=== PATIENT | male | born 1980 | race Native Hawaiian/Other Pacific Islander ===

== ENCOUNTER 2018-04-02 16:24 | Observation (INO) | payer BC ==
[2018-04-02 17:17] LABS: Basophils % (A) 0 %; Eosinophils # (A) 0.1 k/uL (0-0.7); Eosinophils % (A) 1 %; HCT 50.9 % (39.0-53.0); HGB 17.3 gm/dL (13.0-17.5); Lymphocytes % (A) 21 %; MCH 29.5 pg (25.0-35.0); MCHC 33.9 g/dL (31.0-37.0); Mean Platelet Volume 8.5; Monocytes # (A) 0.5 k/uL (0-1.0); Monocytes % (A) 6 %; Neutrophils # (A) 6.7 k/uL (1.3-7.7); Neutrophils % (A) 70 %; Platelet Count 201 k/uL (150-450); RBC 5.84 m/uL (4.30-5.90); RDW 12.3 % (11.5-15.5); WBC 9.5 k/uL (3.8-10.6)
[2018-04-02 17:27] LABS: ALT 42 U/L (21-72); AST 36 U/L (17-59); Albumin 4.6 g/dL (3.5-5.0); Alkaline Phosphatase 77 U/L (38-126); Anion Gap 14 mmol/L; Blood Urea Nitrogen 10 mg/dL (9-20); Carbon Dioxide 23 mmol/L (22-30); Chloride 102 mmol/L (98-107); Glucose 104 mg/dL (74-99); Potassium 3.9 mmol/L (3.5-5.1); Sodium 139 mmol/L (137-145); Total Bilirubin 0.9 mg/dL (0.2-1.3); Total Protein 7.7 g/dL (6.3-8.2)
[2018-04-02 17:34] LABS: INR 1.1 (<1.2); Partial Thromboplastin Time 24.4 sec (22.0-30.0); Prothrombin Time 10.9 sec (9.0-12.0)
[2018-04-02 17:46] LABS: Creatine Kinase 170 U/L (55-170)
[2018-04-02 17:58] LABS: Creatine Kinase MB 1.5 ng/mL (0.0-2.4); Troponin I <0.012 ng/mL (0.000-0.034)
--- NOTE | 2018-04-02 18:29 | ED ---
General Adult HPI - General Chief complaint: Chest Pain Stated complaint: CHEST PAIN HYPERTENSION Source: patient Mode of arrival: wheelchair Limitations: no limitations - History of Present Illness Initial comments: Dictation was produced using [employer] dictation software. please excuse any grammatical, word or spelling errors. Chief Complaint: 37-year-old male presents with chest pain and numbness to the left upper extremity. History of Present Illness: Patient states he had these symptoms ongoing for approximately 2-3 days. He states his symptoms got worse today. Patient states he has a sharp chest pressure that radiates to the back. Reports that the pain also radiates down the left upper extremity. Patient was at work when this occurred. Patient denies this being the worse. He is a full-thickness light. He just had his blood pressure medications changed approximately one week ago. The ROS documented in this emergency department record has been reviewed and confirmed by me. Those systems with pertinent positive or negative responses have been documented in the HPI. All other systems are other negative and/or noncontributory. - Related Data Home Medications Medication Instructions Recorded Confirmed Losartan-Hctz 50-12.5 mg [Hyzaar 1 tab PO DAILY 04/02/18 04/02/18 50-12.5] Allergies Allergy/AdvReac Type Severity Reaction Status Date / Time No Known Allergies Allergy Verified 04/02/18 16:36 Review of Systems ROS Statement: Those systems with pertinent positive or pertinent negative responses have been documented in the HPI. ROS Other: All systems not noted in ROS Statement are negative. Past Medical History Past Medical History: Hypertension History of Any Multi-Drug Resistant Organisms: None Reported Additional Past Surgical History / Comment(s): vasectomy Past Psychological History: No Psychological Hx Reported Smoking Status: Current every day smoker Past Alcohol Use History: Occasional Past Drug Use History: None Reported General Exam - General Exam Comments Initial Comments: PHYSICAL EXAM: General Impression: Alert and oriented x3, not in acute distress HEENT: Normocephalic atraumatic, extra-ocular movements intact, pupils equal and reactive to light bilaterally, mucous membranes moist. Cardiovascular: Heart regular rate and rhythm, S1&S2 audible, no murmurs, rubs or gallops Chest: Lungs clear to auscultation bilaterally, no rhonchi, no wheeze, no rales Abdomen: Bowel sounds present, abdomen soft, non-tender, non-distended, no organomegaly Musculoskeletal: Pulses present and equal in all extremities, no peripheral edema Motor: Power 5/5 bilaterally, no focal deficits noted Neurological: CN II-XII grossly intact, no focal motor or sensory deficits noted Skin: Intact with no visualized rashes Psych: Normal affect and mood Limitations: no limitations Course Vital Signs 04/02/18 04/02/18 04/02/18 16:36 18:00 19:42 Temperature 98.2 F Pulse Rate 89 79 Respiratory 18 18 Rate Blood Pressure 148/100 189/97 149/65 O2 Sat by Pulse 98 98 Oximetry Medical Decision Making - Medical Decision Making ED course: 37-year-old male with chief complaint of chest pain. Vital signs upon arrival are within acceptable limits. Physical examination is unremarkable. Patient has equal pulses of both upper extremities and lower extremities. Patient does not appear to be in any acute distress. Laboratory evaluation obtained. CBC is unremarkable. Coag panel is unremarkable. D-dimer is 0.17. Metabolic panel is unremarkable. Cardiac enzymes are negative. Chest x-ray shows no acute processes. EKG as evidenced obtained showing no signs to suggest ischemia or infarction. More history was obtained from patient. Sounds like patient has strong family history of maternal paternal side of acute coronary syndrome. Maternal side had multiple individuals with coronary artery disease especially at a young age. They have a relative who was in his 30s that had sudden cardiac . There is also multiple individuals on maternal and paternal side who had severe coronary artery disease requiring intervention. Patient still complaining of some chest pressure. Patient's clinical presentation consistent with atypical chest pain with typical features. Given strong family history and suspicious HPI will have patient admitted to observation for suture troponins. Patient given an aspirin. EKG interpretation: Ventricular rate 71, normal sinus rhythm, NH interval 136, QS 90, QTc 412. No NH prolongation, no QTC prolongation, no ST or T-wave changes noted. Overall, this EKG is unremarkable - Lab Data Result diagrams: 04/02/18 17:02 04/02/18 17:02 Lab Results 04/02/18 04/02/18 04/02/18 Range/Units 17:02 17: 17:02 WBC 9.5 (3.8-10.6) k/uL RBC 5.84 (4.30-5.90) m/uL Hgb 17.3 (13.0-17.5) gm/dL Hct 50.9 (39.0-53.0) % MCV 87.0 (80.0-100.0) fL MCH 29.5 (25.0-35.0) pg MCHC 33.9 (31.0-37.0) g/dL RDW 12.3 (11.5-15.5) % Plt Count 201 (150-450) k/uL Neutrophils % 70 % Lymphocytes % 21 % Monocytes % 6 % Eosinophils % 1 % Basophils % 0 % Neutrophils # 6.7 (1.3-7.7) k/uL Lymphocytes # 2.0 (1.0-4.8) k/uL Monocytes # 0.5 (0-1.0) k/uL Eosinophils # 0.1 (0-0.7) k/uL Basophils # 0.0 (0-0.2) k/uL PT (9.0-12.0) sec INR (<1.2) APTT (22.0-30.0) sec D-Dimer (<0.60) mg/L FEU Sodium 139 (137-145) mmol/L Potassium 3.9 (3.5-5.1) mmol/L Chloride 102 (98-107) mmol/L Carbon Dioxide 23 (22-30) mmol/L Anion Gap 14 mmol/L BUN 10 (9-20) mg/dL Creatinine 0.67 (0.66-1.25) mg/dL Est GFR (CKD-EPI)AfAm >90 (>60 ml/min/1.73 sqM) Est GFR (CKD-EPI)NonAf >90 (>60 ml/min/1.73 sqM) Glucose 104 H (74-99) mg/dL Calcium 10.0 (8.4-10.2) mg/dL Total Bilirubin 0.9 (0.2-1.3) mg/dL AST 36 (17-59) U/L ALT 42 (21-72) U/L Alkaline Phosphatase 77 (38-126) U/L Total Creatine Kinase 170 (55-170) U/L CK-MB (CK-2) 1.5 (0.0-2.4) ng/mL CK-MB (CK-2) Rel Index 0.9 Troponin I <0.012 (0.000-0.034) ng/mL Total Protein 7.7 (6.3-8.2) g/dL Albumin 4.6 (3.5-5.0) g/dL 04/02/18 04/02/18 Range/Units 17:02 17:02 WBC (3.8-10.6) k/uL RBC (4.30-5.90) m/uL Hgb (13.0-17.5) gm/dL Hct (39.0-53.0) % MCV (80.0-100.0) fL MCH (25.0-35.0) pg MCHC (31.0-37.0) g/dL RDW (11.5-15.5) % Plt Count (150-450) k/uL Neutrophils % % Lymphocytes % % Monocytes % % Eosinophils % % Basophils % % Neutrophils # (1.3-7.7) k/uL Lymphocytes # (1.0-4.8) k/uL Monocytes # (0-1.0) k/uL Eosinophils # (0-0.7) k/uL Basophils # (0-0.2) k/uL PT 10.9 (9.0-12.0) sec INR 1.1 (<1.2) APTT 24.4 (22.0-30.0) sec D-Dimer <0.17 (<0.60) mg/L FEU Sodium (137-145) mmol/L Potassium (3.5-5.1) mmol/L Chloride (98-107) mmol/L Carbon Dioxide (22-30) mmol/L Anion Gap mmol/L BUN (9-20) mg/dL Creatinine (0.66-1.25) mg/dL Est GFR (CKD-EPI)AfAm (>60 ml/min/1.73 sqM) Est GFR (CKD-EPI)NonAf (>60 ml/min/1.73 sqM) Glucose (74-99) mg/dL Calcium (8.4-10.2) mg/dL Total Bilirubin (0.2-1.3) mg/dL AST (17-59) U/L ALT (21-72) U/L Alkaline Phosphatase (38-126) U/L Total Creatine Kinase (55-170) U/L CK-MB (CK-2) (0.0-2.4) ng/mL CK-MB (CK-2) Rel Index Troponin I (0.000-0.034) ng/mL Total Protein (6.3-8.2) g/dL Albumin (3.5-5.0) g/dL Disposition Clinical Impression: Chest pain Disposition: ADMITTED IP TO THIS HOSP Referrals: Tj Lakhani DO [Primary Care Provider] - 1-2 days Decision Time: 20:47
--- NOTE | 2018-04-02 19:07 | XR ---
EXAMINATION: XR chest 2V DATE AND TIME: 04/02/2018 6:41 PM CLINICAL INDICATION: Pain TECHNIQUE: PA and lateral COMPARISON: None. FINDINGS: The lungs are clear. The pleural spaces are negative. The cardiac silhouette is not enlarged. The remainder of the mediastinal silhouette is unremarkable. The skeletal structures and soft tissues are negative for acute findings. IMPRESSION: NO ACUTE PROCESS.
[2018-04-02] MEDS ORDERED: NITROGLYCERIN SL TABS 0.4 MG TAB SUBLINGUAL PRN (20:45)
[2018-04-02] MEDS ORDERED: ASPIRIN 81 MG PO STA (20:45)
[2018-04-02 21:55] VITALS: BMI 29.3
[2018-04-02 23:51] LABS: Creatine Kinase 136 U/L (55-170)
[2018-04-03 00:04] LABS: Creatine Kinase MB 1.3 ng/mL (0.0-2.4); Troponin I <0.012 ng/mL (0.000-0.034)
[2018-04-03 01:39] VITALS: RESP 16
[2018-04-03 05:45] LABS: Cholesterol 199 mg/dL (<200); HDL Cholesterol 53 mg/dL (40-60); LDL Cholesterol,Calculated 126 mg/dL (0-99); Triglycerides 98 mg/dL (<150)
[2018-04-03 05:53] LABS: Creatine Kinase 123 U/L (55-170)
[2018-04-03 06:07] LABS: Creatine Kinase MB 1.4 ng/mL (0.0-2.4); Troponin I <0.012 ng/mL (0.000-0.034)
[2018-04-03 07:39] VITALS: TEMP 98.2
[2018-04-03] MEDS ORDERED: IBUPROFEN 600 MG TAB PO STA (08:20)
[2018-04-03] MEDS ORDERED: LOSARTAN-HCTZ 50-12.5 MG 1 EACH TAB PO SCH (09:00)
[2018-04-03] MEDS ORDERED: ASPIRIN 325 MG TAB PO SCH (09:00)
--- NOTE | 2018-04-03 10:22 | P.HPIM ---
History of Present Illness H&P Date: 04/03/18 Chief Complaint: chest pain 37-year-old male who presented to the emergency room with a chief complaint of chest pain. The patient states approximately week ago he had received some bad news in regards to his family and his stress level "skyrocketed". He states over the past week he has been having some vague abdominal pain and nausea although he currently denies both. He states yesterday he was at work around noon when he started having left-sided chest pain. He states the pain was constant and started to radiate into his left shoulder and down his left arm. He also states he had some numbness of his left upper extremity. He denied shortness of breath. He does report dizziness. He did receive aspirin in the emergency room which she states did improve his pain but it did not completely take it away. The patient has a history of hypertension. He is prescribed Hyzaar. Surgical history includes a vasectomy. He is a former cigarette smoker. He does have a family history of cardiac disease which multiple family members requiring cardiac interventions such as stenting. He also reports a family member in his 30s who from sudden cardiac . Chest x-ray: Negative for an acute cardiopulmonary process. EKG: Sinus rhythm. Rate 71. Laboratory data upon admission reveals WBC 9.5. Hemoglobin 17.3. Platelet count 201. INR 1.1. D-dimer less than 0.17. Sodium 139. Potassium 3.9. BUN 10. Creatinine 0.67. Glucose 104. Troponins negative 3. Lipid panel: Triglycerides 98. Cholesterol 199. LDL 126. HDL 53. The patient was admitted to the hospital under the care of Dr. Lakhani to the observation unit. Consultations were placed to cardiology. Review of Systems Those systems with pertinent positive or pertinent negative responses have been documented in the HPI Past Medical History Past Medical History: Hypertension History of Any Multi-Drug Resistant Organisms: None Reported Additional Past Surgical History / Comment(s): vasectomy Past Anesthesia/Blood Transfusion Reactions: No Reported Reaction Past Psychological History: No Psychological Hx Reported Smoking Status: Former smoker Past Alcohol Use History: Occasional Past Drug Use History: None Reported - Past Family History Father Family Medical History: Myocardial Infarction ([place]) Additional Family Medical History / Comment(s): had [place] around age 65 Mother Additional Family Medical History / Comment(s): grandmother on mothers side hx of heart disease and 3 of pts mothers siblings have had [place]'s earliest known age 30's. Medications and Allergies Home Medications Medication Instructions Recorded Confirmed Type Losartan-Hctz 50-12.5 mg [Hyzaar 1 tab PO DAILY 04/02/18 04/02/18 History 50-12.5] Allergies Allergy/AdvReac Type Severity Reaction Status Date / Time No Known Allergies Allergy Verified 04/02/18 16:36 Physical Exam Vitals: Vital Signs Temp Pulse Pulse Resp BP BP Pulse Ox 04/03/18 08:00 62 16 04/03/18 07:38 98.2 F 62 16 152/94 98 04/03/18 04:00 16 04/03/18 03:45 97.6 F 63 16 143/85 97 04/02/18 23:55 97.7 F 88 16 161/97 98 04/02/18 23:39 18 04/02/18 21:50 84 151/89 04/02/18 21:30 18 04/02/18 21:25 97.5 F L 77 18 166/105 96 04/02/18 21:21 88 18 170/102 97 04/02/18 19:42 149/65 04/02/18 18:00 79 18 189/97 98 04/02/18 16:36 98.2 F 89 18 148/100 98 Intake and Output 04/02/18 04/03/18 04/03/18 22:59 06:59 14:59 Other: Voiding Method Toilet Toilet Toilet # Voids 1 2 Weight 85.1 kg GENERAL: This is a 37-year-old male in no apparent distress at the time of examination. HEENT: Head is atraumatic, normocephalic. Sclerae anicteric. Conjunctivae are clear. Neck is supple. RESPIRATORY: Clear to ausculation. No wheezes, rales, or rhonchi. No use of accessory muscles. CARDIOVASCULAR: Regular rate and rhythm. S1 and S2 noted. No JVD noted. No S3 or S4 noted. GASTROINTESTINAL: No distention noted. Abdomen soft and round. Normal active bowel sounds auscultated x 4 quadrants. INTEGUMENTARY: No cyanosis. No jaundice. No rashes noted. No cellulitis noted. EXTREMITIES: 2+ peripheral pulses. No evidence of peripheral edema. NEUROLOGIC: Cranial nerves II-XII intact. PSYCHIATRIC: Awake, alert, and oriented X 3. Appropriate affect. Results CBC & Chem 7: 04/02/18 17:02 04/02/18 17:02 Labs: Abnormal Lab Results - Last 24 Hours (Table) 04/02/18 04/03/18 Range/Units 17:02 05:16 Glucose 104 H (74-99) mg/dL LDL Cholesterol, Calc 126 H (0-99) mg/dL Thrombosis Risk Factor Assmnt - Choose All That Apply Each Factor Represents 1 point: Obesity (BMI >25) Thrombosis Risk Factor Assessment Total Risk Factor Score: 1 Thrombosis Risk Factor Assessment Level: Low Risk Assessment and Plan Plan: ASSESSMENT: Chest pain and dizziness x 1 day, troponin negative x 3, rule out acute coronary syndrome Hypertension History of nicotine dependence, patient is a former cigarette smoker Family history of cardiac disease PLAN: Cardiology on consult. Await further recommendations and input Echocardiogram ordered. Await results Home meds as appropriate Monitor vital signs and address as appropriate Discharge planning: Patient to return home when stable Further recommendations pending patient's course Nurse practitioner note has been reviewed by physician. Signing provider agrees with the documented findings, assessment, and plan of care.
--- NOTE | 2018-04-03 10:45 | P.CRDCN ---
History of Present Illness History of present illness: Mr. Overton is a pleasant 37-year-old male past medical history significant for hypertension. He has followed with Dr. Canada in the past for chest pain and undergone a stress test that was unremarkable in 2016. We have been asked to see him in consultation for chest pain. He states yesterday while working he started having sharp constant pain in the left precordial region that moved around from under his left breast to mid-sternal and epigastric region. Associated with mild shortness of breath and dizziness. At times the discomfort would go into his left shoulder and upper arm. Denies radiation to neck, jaw or back. Denies associated palpitations, nausea, vomiting or diaphoresis. The symptoms started around noon yesterday and persisted until he fell asleep last night at 2300. No specific aggravating or alleviating factors. Still feels mild discomfort when he takes a deep breath and pain is reproducible on palpitation. He also states he has not had a bowel movement in 2 days and is usually quite regular going 3 times per day. EKG reveals sinus mechanism with no acute ST or T-wave abnormalities noted. Chest xray negative for an acute cardiopulmonary process. Laboratory data reviewed, hemoglobin 17.3, platelets 201, d-dimer less than 0.17 , sodium 139, potassium 3.9, cardiac enzymes negative 3, LDL 126, HDL 53, triglycerides 98, total cholesterol 199. Current cardiac medications include Hyzaar 50/12.5 mg daily. Review of Systems At the time of my exam: CONSTITUTIONAL: Denies fever. Denies chills. EYES: Denies blurred vision. Denies vision changes. Denies eye pain. EARS, NOSE, MOUTH & THROAT: Denies headache. Denies sore throat. Denies ear pain. CARDIOVASCULAR: Complains of pleuritic chest pain. Denies shortness of breath. Denies orthopnea. Denies PND. Denies palpitations. RESPIRATORY: Denies cough. GASTROINTESTINAL: Denies abdominal pain. Denies diarrhea. Denies constipation. Denies nausea. Denies vomiting. MUSCULOSKELETAL: Denies myalgias. INTEGUMENTARY: Denies pruitis. Denies rash. NEUROLOGIC: Denies numbness. Denies tingling. Denies weakness. PSYCHIATRIC: Denies anxiety. Denies depression. ENDOCRINE: Denies fatigue. Denies weight change. Denies polydipsia. Denies polyurina. GENITOURINARY: Denies burning, hematuria or urgency with micturation. HEMATOLOGIC: Denies history of anemia. Denies bleeding. Past Medical History Past Medical History: Hypertension History of Any Multi-Drug Resistant Organisms: None Reported Additional Past Surgical History / Comment(s): vasectomy Past Anesthesia/Blood Transfusion Reactions: No Reported Reaction Past Psychological History: No Psychological Hx Reported Smoking Status: Former smoker Past Alcohol Use History: Occasional Past Drug Use History: None Reported - Past Family History Father Family Medical History: Myocardial Infarction ([place]) Additional Family Medical History / Comment(s): had [place] around age 65 Mother Additional Family Medical History / Comment(s): grandmother on mothers side hx of heart disease and 3 of pts mothers siblings have had [place]'s earliest known age 30's. Medications and Allergies Home Medications Medication Instructions Recorded Confirmed Type Losartan-Hctz 50-12.5 mg [Hyzaar 1 tab PO DAILY 04/02/18 04/02/18 History 50-12.5] Allergies Allergy/AdvReac Type Severity Reaction Status Date / Time No Known Allergies Allergy Verified 04/02/18 16:36 Physical Exam Vitals: Vital Signs Temp Pulse Pulse Resp BP BP Pulse Ox 04/03/18 07:38 98.2 F 62 16 152/94 98 04/03/18 04:00 16 04/03/18 03:45 97.6 F 63 16 143/85 97 04/02/18 23:55 97.7 F 88 16 161/97 98 04/02/18 23:39 18 04/02/18 21:50 84 151/89 04/02/18 21:30 18 04/02/18 21:25 97.5 F L 77 18 166/105 96 04/02/18 21:21 88 18 170/102 97 04/02/18 19:42 149/65 04/02/18 18:00 79 18 189/97 98 04/02/18 16:36 98.2 F 89 18 148/100 98 Intake and Output 04/02/18 04/03/18 04/03/18 22:59 06:59 14:59 Other: Voiding Method Toilet Toilet # Voids 1 2 Weight 85.1 kg Blood pressure 152/94 heart rate 62 afebrile maintaining oxygen saturation on room air GENERAL: This is a 37-year-old male in no apparent distress at the time of my examination. HEENT: Head is atraumatic, normocephalic. Pupils are equal, round. Sclerae anicteric. Conjunctivae are clear. Mucous membranes of the mouth are moist. Neck is supple. There is no jugular venous distention. No carotid bruit is heard. LUNGS: Clear to auscultation no wheezes, rales or rhonchi. Mild chest wall tenderness is noted on palpation and with deep breathing. HEART: Regular rate and rhythm without murmurs, rubs or gallops. S1 and S2 heard. ABDOMEN: Soft, nontender. Bowel sounds are heard. No organomegaly noted. EXTREMITIES: No evidence of peripheral edema and no calf tenderness noted. VASCULAR: Radial and dorsalis pedis pulses palpated, no evidence of clubbing. NEUROLOGIC: Patient is awake, alert and oriented x3. Results 04/02/18 17:02 04/02/18 17:02 Cardiac Enzymes 04/02/18 04/02/18 04/02/18 Range/Units 17:02 17:02 23:07 AST 36 (17-59) U/L CK-MB (CK-2) 1.5 1.3 (0.0-2.4) ng/mL Troponin I <0.012 <0.012 (0.000-0.034) ng/mL 04/03/18 Range/Units 05:16 AST (17-59) U/L CK-MB (CK-2) 1.4 (0.0-2.4) ng/mL Troponin I <0.012 (0.000-0.034) ng/mL Coagulation 04/02/18 Range/Units 17:02 PT 10.9 (9.0-12.0) sec APTT 24.4 (22.0-30.0) sec Lipids 04/03/18 Range/Units 05:16 Triglycerides 98 (<150) mg/dL Cholesterol 199 (<200) mg/dL HDL Cholesterol 53 (40-60) mg/dL CBC 04/02/18 Range/Units 17:02 WBC 9.5 (3.8-10.6) k/uL RBC 5.84 (4.30-5.90) m/uL Hgb 17.3 (13.0-17.5) gm/dL Hct 50.9 (39.0-53.0) % Plt Count 201 (150-450) k/uL Comprehensive Metabolic Panel 04/02/18 Range/Units 17:02 Sodium 139 (137-145) mmol/L Potassium 3.9 (3.5-5.1) mmol/L Chloride 102 (98-107) mmol/L Carbon Dioxide 23 (22-30) mmol/L BUN 10 (9-20) mg/dL Creatinine 0.67 (0.66-1.25) mg/dL Glucose 104 H (74-99) mg/dL Calcium 10.0 (8.4-10.2) mg/dL AST 36 (17-59) U/L ALT 42 (21-72) U/L Alkaline Phosphatase 77 (38-126) U/L Total Protein 7.7 (6.3-8.2) g/dL Albumin 4.6 (3.5-5.0) g/dL Current Medications Generic Name Dose Route Start Last Admin Trade Name Freq PRN Reason Stop Dose Admin Aspirin 325 mg 04/03/18 09:00 Aspirin PO DAILY PRAKASH HCTZ/Losartan Potassium 1 each 04/03/18 09:00 Hyzaar 50-12.5 PO DAILY PRAKASH Ibuprofen 600 mg 04/03/18 08:20 Motrin PO 04/03/18 08:21 ONCE STA Nitroglycerin 0.4 mg 04/02/18 20:45 Nitrostat SUBLINGUAL Q5M PRN Chest Pain Intake and Output 04/02/18 04/03/18 04/03/18 22:59 06:59 14:59 Other: Voiding Method Toilet Toilet # Voids 1 2 Weight 85.1 kg 04/02/18 17:02 04/02/18 17:02 Assessment and Plan Assessment: ASSESSMENT Pleuritic chest pain Hypertension Dyslipidemia PLAN Obtain 2-D echocardiogram and Doppler study to assess cardiac structure and function. Give Motrin 600 mg 1 now. Resume Hyzaar. Perform stress echocardiogram to assess for stress induced cardiac ischemia. Lifestyle modifications recommended for lowering of LDL cholesterol such as diet and exercise. Thank you kindly for this consultation. Nurse Practitioner note has been reviewed, I agree with a documented findings and plan of care. Patient was seen and examined.
[2018-04-03 11:35] VITALS: BP 168/109; PULSE 67
--- NOTE | 2018-04-03 11:50 | ECHOF ---
Referral Reason:cp MEASUREMENTS -------- HEIGHT: 167.6 cm WEIGHT: 84.8 kg BP: 152/94 RVIDd: 2.6 cm (< 3.3) IVSd: 1.4 cm (0.6 - 1.1) LVIDd: 3.4 cm (3.9 - 5.3) LVPWd: 1.4 cm (0.6 - 1.1) IVSs: 2.0 cm LVIDs: 2.4 cm LVPWs: 1.5 cm LA Diam: 3.0 cm (2.7 - 3.8) LAESV Index (A-L): 26.34 ml/m Ao Diam: 3.7 cm (2.0 - 3.7) AV Cusp: 2.3 cm (1.5 - 2.6) MV EXCURSION: 15.228 mm (> 18.000) MV EF SLOPE: 81 mm/s (70 - 150) EPSS: 0.4 cm MV E Benjamin: 0.88 m/s MV DecT: 240 ms MV A Benjamin: 0.71 m/s MV E/A Ratio: 1.25 FINDINGS -------- Sinus rhythm. This was a technically good study. The left ventricular size is normal. There is mild concentric left ventricular hypertrophy. Overa ll left ventricular systolic function is normal with, an EF between 60 - 65 %. The right ventricle is normal in size. Normal LA size by volume 22+/-6 ml/m2. The right atrium is normal in size. The aortic valve is trileaflet and appears structurally normal. The mitral valve is normal. The tricuspid valve appears structurally normal. Trace/mild (physiologic) pulmonic regurgitation. The aortic root size is normal. Normal inferior vena cava with normal inspiratory collapse consistent with estimated right atrial pre ssure of 5 mmHg. There is no pericardial effusion. CONCLUSIONS -------- 1. Sinus rhythm. 2. This was a technically good study. 3. The left ventricular size is normal. 4. There is mild concentric left ventricular hypertrophy. 5. Overall left ventricular systolic function is normal with, an EF between 60 - 65 %. 6. The right ventricle is normal in size. 7. Normal LA size by volume 22+/-6 ml/m2. 8. The right atrium is normal in size. 9. The aortic valve is trileaflet and appears structurally normal. 10. The mitral valve is normal. 11. The tricuspid valve appears structurally normal. 12. Trace/mild (physiologic) pulmonic regurgitation. 13. The aortic root size is normal. 14. Normal inferior vena cava with normal inspiratory collapse consistent with estimated right atrial pressure of 5 mmHg. 15. There is no pericardial effusion. VASCULAR NURSE: Idalmis Baron RDCS
--- NOTE | 2018-04-03 13:43 | P.DS ---
Providers Date of admission: 04/02/18 20:45 Expected date of discharge: 04/03/18 Attending physician: Tj Lakhani Consults: 04/02/18 22:14 Consult Physician Routine Consulting Provider: Bro Cbaral Consult Reason/Comments: chest pain - r/o ACS Do you want consulting provider notified?: Yes, Notify in am Primary care physician: Tj Lakhani [facility] Course: 37-year-old male who presented to the emergency room with a chief complaint of chest pain. The patient states approximately week ago he had received some bad news in regards to his family and his stress level "skyrocketed". He states over the past week he has been having some vague abdominal pain and nausea although he currently denies both. He states yesterday he was at work around noon when he started having left-sided chest pain. He states the pain was constant and started to radiate into his left shoulder and down his left arm. He also states he had some numbness of his left upper extremity. He denied shortness of breath. He does report dizziness. He did receive aspirin in the emergency room which she states did improve his pain but it did not completely take it away. The patient has a history of hypertension. He is prescribed Hyzaar. Surgical history includes a vasectomy. He is a former cigarette smoker. He does have a family history of cardiac disease which multiple family members requiring cardiac interventions such as stenting. He also reports a family member in his 30s who from sudden cardiac . Chest x-ray: Negative for an acute cardiopulmonary process. EKG: Sinus rhythm. Rate 71. Laboratory data upon admission reveals WBC 9.5. Hemoglobin 17.3. Platelet count 201. INR 1.1. D-dimer less than 0.17. Sodium 139. Potassium 3.9. BUN 10. Creatinine 0.67. Glucose 104. Troponins negative 3. Lipid panel: Triglycerides 98. Cholesterol 199. LDL 126. HDL 53. The patient was admitted to the hospital under the care of Dr. Lakhani to the observation unit. Consultations were placed to cardiology. The patient was evaluated by cardiology. He underwent stress testing which was negative. He was deemed stable for discharge. He is to follow up on an outpatient basis. DISCHARGE DIAGNOSIS: Chest pain and dizziness x 1 day, troponin negative x 3, acute coronary syndrome ruled out Hypertension History of nicotine dependence, patient is a former cigarette smoker Family history of cardiac disease Nurse practitioner note has been reviewed by physician. Signing provider agrees with the documented findings, assessment, and plan of care. Plan - Discharge Summary New Discharge Prescriptions: Continue Losartan-Hctz 50-12.5 mg [Hyzaar 50-12.5] 1 tab PO DAILY Discharge Medication List Losartan-Hctz 50-12.5 mg [Hyzaar 50-12.5] 1 tab PO DAILY 04/02/18 [History] Follow up Appointment(s)/Referral(s): Tj Lakhani DO [Primary Care Provider] - 1 Week Alejandra Clayton MD [STAFF PHYSICIAN] - 04/16/18 3:45 pm Patient Instructions/Handouts: Cholesterol and Your Health (GEN), Lipid Profile (GEN) Discharge Disposition: HOME SELF-CARE
--- NOTE | 2018-04-03 13:46 | ECHOS ---
STRESS ECHOCARDIOGRAM DATE OF SERVICE: 04/03/2018 INDICATIONS: Chest pain. MEDICATIONS: Losartan. BASELINE HEART RATE: 91 BASELINE BLOOD PRESSURE: 151/66 MAXIMUM HEART RATE: 169 MAXIMUM BLOOD PRESSURE: 194/81 85% MPHR: 156 100% MPHR: 183 METS: 11.7 MAXIMUM STAGE REACHED: IV TOTAL EXERCISE TIME: 10 minutes CLINICAL INFORMATION: Patient was exercised for a total period of 10 minutes. Peak heart rate of 169 was achieved. Maximum blood pressure of 194/81 mmHg was noted. The patient did not complain of any chest pain during the test. Resting EKG shows normal sinus rhythm with normal [place] interval and QRS duration and normal ST-T waves. No ST-segment depression suggestive of ischemia is noted. The baseline echocardiographic images reveal normal left ventricular chamber size with normal left ventricular systolic function. In the immediate postexercise period, normal increase in the wall thickness and contractility is noted. FINAL IMPRESSION: This stress echocardiographic study is negative for stress-induced ischemia. EKG portion of the stress is not suggestive of ischemia. MMODL / IJN: [id number] /
== END 2018-04-03 14:04 | disposition home or self-care (01) ==
LOC: EC 16:24 → 3OBS 20:45
PROVIDERS: ADMIT Family Medicine; ATTEND Family Medicine
DX: R07.89 Other chest pain (principal); R10.9 Unspecified abdominal pain; R11.0 Nausea; R20.0 Anesthesia of skin; R42 Dizziness and giddiness; R07.81 Pleurodynia; R06.02 Shortness of breath; I10 Essential (primary) hypertension; E78.5 Hyperlipidemia, unspecified; Z87.891 Personal history of nicotine dependence; Z82.49 Family history of ischemic heart disease and other diseases of the circulatory system; E66.9 Obesity, unspecified; Z68.30 Body mass index [BMI] 30.0-30.9, adult; Z79.899 Other long term (current) drug therapy
CPT/HCPCS: 99285 ×2; 36415; 93005; 93306; 93351; 85379; 80061; 80053; 82550 ×2; 82553 ×2; 83735; 84484 ×2; 85025; 85610; 85730; 71046; G0378 ×2